=== PATIENT | male | born 1990 | race Caucasian/White ===

== ENCOUNTER 2016-10-01 21:12 | Emergency (ER) | payer BC, OTHER ==
[~2016-10-01] VITALS: Ht 170.2 cm; Wt 59.0 kg
[2016-10-01 21:25] VITALS: Ht 170.2 cm; Wt 59.0 kg
--- NOTE | 2016-10-01 21:38 | ERA ---
ER Documentation Chief Complaint Date/Time DATE: 10/01/16 TIME: 21:38 Chief Complaint STATES "HE HAS NOT SLEPT FOR 3 DAYS AND HE IS HAVING SUICIDAL THOUGHTS" HPI The patient is a 26-year-old male, presenting to the ER because of auditory hallucination, homicidal ideation, suicidal ideation and insomnia for the last 3 days. He plans to overdose on his medication and drugs. He has not been taking his psychotropic medication. He has been doing amphetamine, heroin, marijuana. He denies headache, neck pain, chest pain, abdominal pain, vomiting , dysuria, diarrhea. He was hospitalized at psychiatric hospital about a year and a half ago. He smokes and drinks Past medical history: Schizoaffective disorder Past surgical history: None ROS All systems reviewed and are negative except as per history of present illness. Medications Home Meds Reported Medications Risperidone* (Risperdal*) Unknown Strength Tablet, 0.2 MG PO DAILY Y for PRN, TAB 10/01/16 Allergies Allergies: Coded Allergies: No Known Allergy (Unverified , 10/01/16) Physical Exam Vitals Vital Signs Date Time Temp Pulse Resp B/P Pulse Ox O2 Delivery O2 Flow Rate FiO2 10/01/16 21:25 97.8 106 20 142/95 97 Physical Exam Const: No acute distress. Unkempt Head: Atraumatic. Eyes: Normal Conjunctiva. ENT: Normal External Ears, Nose and Mouth. Neck: Full range of motion. No meningismus. Resp: Clear to auscultation bilaterally. Cardio: Regular rate and rhythm, no murmurs. Abd: Soft, non distended, normal bowel sounds, non tender. Skin: No petechiae or rashes. Back: No midline or flank tenderness. Ext: No cyanosis, or edema. Neur: Awake and alert. No focal deficit Psych: Suicidal Result Diagram: 10/01/16215410/01/162154 Results 24 hrs Laboratory Tests Test 10/01/16 21:49 10/01/16 21:55 Urine Color YELLOW Urine Clarity SLIGHTLY CLOUDY Urine pH 6.0 Urine Specific [place] >=1.030 Urine Ketones TRACE Urine Nitrite NEGATIVE Urine Bilirubin NEGATIVE Urine Urobilinogen 1.0 E.U./dL Urine Leukocyte Esterase NEGATIVE Urine Microscopic RBC NONE SEEN/HPF Urine Microscopic WBC 5-10/HPF Urine Squamous Epithelial Cells RARE Urine Bacteria MODERATE Urine Mucus MANY Urine Hemoglobin NEGATIVE Urine Glucose NEGATIVE% Urine Total Protein TRACE Urine Opiates Screen POSITIVE Urine Barbiturates NEGATIVE Urine Amphetamines Screen POSITIVE Urine Benzodiazepines Screen NEGATIVE Urine Cocaine Screen NEGATIVE Urine Cannabinoids POSITIVE White Blood Count 8.010^3/ul Red Blood Count 4.4810^6/ul Hemoglobin 14.4g/dl Hematocrit 40.5% Mean Corpuscular Volume 90.4fl Mean Corpuscular Hemoglobin 32.1pg Mean Corpuscular Hemoglobin Concent 35.6g/dl Red Cell Distribution Width 10.9% Platelet Count 17617^3/UL Mean Platelet Volume 10.6fl Neutrophils % 68.3% Lymphocytes % 24.6% Monocytes % 6.6% Eosinophils % 0.1% Basophils % 0.3% Nucleated Red Blood Cells % 0.0/100WBC Neutrophils # 5.410^3/ul Lymphocytes # 2.010^3/ul Monocytes # 0.510^3/ul Eosinophils # 0.010^3/ul Basophils # 0.010^3/ul Nucleated Red Blood Cells # 0.010^3/ul Sodium Level 139mmol/L Potassium Level 3.4mmol/L Chloride Level 101mmol/L Carbon Dioxide Level 26mmol/L Anion Gap 15 Blood Urea Nitrogen 9mg/dl Creatinine 0.78mg/dl Glucose Level 93mg/dl Calcium Level 9.3mg/dl Total Bilirubin 0.7mg/dl Direct Bilirubin 0.00mg/dl Indirect Bilirubin 0.7mg/dl Aspartate Amino Transf (AST/SGOT) 24IU/L Alanine Aminotransferase (ALT/SGPT) 28IU/L Alkaline Phosphatase 72IU/L Total Protein 7.4g/dl Albumin 4.5g/dl Globulin 2.90g/dl Albumin/Globulin Ratio 1.55 Salicylates Level < 1.0mg/dl Acetaminophen Level < 10.0ug/ml Ethyl Alcohol Level < 10.0mg/dl Current Medications Medications (Trade) Dose Ordered Sig/Shine Route PRN Reason Start Time Stop Time Status Last Admin Dose Admin Potassium Chloride (Klor-Con 20) 20 meq ONCE STAT PO 10/01/16 23:18 10/01/16 23:24 DC Procedures/MDM MEDICAL MAKING DECISION: The patient is a 26-year-old male, presenting to the ER because of acute suicidal ideation, acute hypokalemia. He was treated with potassium chloride 20 mEq p.o. for low potassium The differential diagnoses considered include but are not limited to drug induced psychosis, psychosis, decompensated psychiatric illness, anxiety attack , panic attack Departure Diagnosis: Primary Impression: Suicidal ideation Additional Impressions: Hypokalemia Substance abuse Condition: Stable Comments He is waiting for telepsychiatrist evaluation The patient's blood pressure was elevated (>120/80) but appears stable without evidence of hypertension emergency or urgency. The patient was counseled about the risks of hypertension and urged to pursue outpatient monitoring and therapy within a week with their primary care physician. PATRICK MARIN MD October 01, 2016 21:38
[2016-10-01 22:03] LABS: ADD UMIC YES; URINE BILIRUBIN (Dip) NEGATIVE (NEGATIVE); URINE BLOOD (Dip) NEGATIVE (NEGATIVE); URINE COLOR YELLOW (YELLOW); URINE GLUCOSE (Dip) NEGATIVE (NEGATIVE); URINE KETONES (Dip) TRACE (NEGATIVE); URINE LEUKOCYTE ESTERASE (Dip) NEGATIVE (NEGATIVE); URINE NITRITE (Dip) NEGATIVE (NEGATIVE); URINE UROBILINOGEN (Dip) 1.0 E.U./dL (0.1-1.0)
[2016-10-01 22:08] LABS: ADD SCAN DIFF NO
[2016-10-01 22:11] LABS: BASOPHILS % 0.3 % (0.0-2.0); EOSINOPHILS % 0.1 % (0.0-7.0); HEMATOCRIT 40.5 % (42.0-52.0); HEMOGLOBIN 14.4 g/dl (14.0-18.0); LYMPHOCYTES % 24.6 % (15.0-51.0); MEAN CORPUSCULAR HEMOGLOBIN 32.1 pg (29.0-33.0); MEAN CORPUSCULAR HGB CONC 35.6 g/dl (32.0-37.0); MEAN CORPUSCULAR VOLUME 90.4 fl (82.0-101.0); MEAN PLATELET VOLUME 10.6 fl (7.4-10.4); MONOCYTE # 0.5 10^3/ul (0.3-0.9); MONOCYTES % 6.6 % (0.0-11.0); NEUTROPHIL # 5.4 10^3/ul (1.6-7.5); NEUTROPHILS % 68.3 % (39.0-77.0); PLATELET COUNT 256 10^3/UL (140-415); RED BLOOD COUNT 4.48 10^6/ul (4.70-6.10); RED CELL DISTRIBUTION WIDTH 10.9 % (11.5-14.5)
[2016-10-01 22:18] LABS: URINE RBCS NONE SEEN /HPF (0); URINE TOTAL PROTEIN (Dip) TRACE (NEGATIVE)
[2016-10-01 22:19] LABS: SQUAMOUS EPITHELIAL CELL,UR RARE
[2016-10-01 22:20] LABS: BACTERIA,URINE MODERATE; MUCUS,URINE MANY
[2016-10-01 22:33] LABS: BENZODIAZEPINES NEGATIVE (NEGATIVE); CANNABINOIDS POSITIVE (NEGATIVE); COCAINE NEGATIVE (NEGATIVE); OPIATES POSITIVE (NEGATIVE)
[2016-10-01 22:33] LABS: ALBUMIN 4.5 g/dl (3.3-4.9); CHLORIDE 101 mmol/L (97-110); SODIUM 139 mmol/L (135-144)
[2016-10-01 22:34] LABS: POTASSIUM 3.4 mmol/L (3.5-5.1)
[2016-10-01 22:35] LABS: CREATININE 0.78 mg/dl (0.61-1.24)
[2016-10-01 22:36] LABS: ALANINE AMINOTRANSFERASE 28 IU/L (13-69); ALBUMIN/GLOBULIN RATIO 1.55; ALKALINE PHOSPHATASE 72 IU/L (42-121); ANION GAP 15 (8-16); ASPARTATE AMINO TRANSFERASE 24 IU/L (15-46); BILIRUBIN,INDIRECT 0.7 mg/dl (0-1.1); BILIRUBIN,TOTAL 0.7 mg/dl (0.2-1.3); BLOOD UREA NITROGEN 9 mg/dl (7-20); CALCIUM 9.3 mg/dl (8.4-10.2); CARBON DIOXIDE 26 mmol/L (21-31); GLUCOSE 93 mg/dl (70-220); TOTAL PROTEIN 7.4 g/dl (6.1-8.1)
[2016-10-01 22:44] LABS: ACETAMINOPHEN < 10.0 ug/ml (10.0-30.0); ETHANOL < 10.0 mg/dl; SALICYLATE < 1.0 mg/dl (5.0-30.0)
[2016-10-01] MEDS ORDERED: RISP0.2553 PO (23:02)
[2016-10-01] MEDS ORDERED: POTASSIUM CHLORIDE (SR) 20 MEQ TAB PO STA (23:18)
[2016-10-01 23:30] LABS: BARBITURATES NEGATIVE (NEGATIVE)
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
[2016-10-02 13:33] VITALS: TEMP 99.1
--- NOTE | 2016-10-02 14:28 | PSY ---
Date/Time of Note Date/Time of Note DATE: 10/02/16 TIME: 14:21 Psychiatric Subjective Eval Subjective Evaluation Patient location: emergency Chief Complaint: "i WAS FORCED TO SAY I AM SUICIDAL TO GET A PLACE TO SPEND THE NIGHT" Reason for consult: si and hi History of present illness patient is a 26 yo male homeless with PPH Of bipolar do , methamphetamine and heroine abuse who came to the ER last night saying he is feeling suicidal. Patient states now he is not sucidal, he was "forced" to say that in order to get a place to sleep: "Just think about it- if I would say that I am a drug addict and I need a safe place to spend the night they would tell me "get the f* *k outta here..so I had to lie to get a bed". Pt denies si or hi, denies ah or vh, denies depression, He says he has a friend who will take him in. "I go to random places for treatment and end up leaving because i don't like how i am treated there..now my friend will take me in". Pt refuses meds or cd rehab referrals Past psychiatric history see prior eval Hospitalization: yes Family History denies Medical history Problems Medical Problems: (1) Hypokalemia Status: Acute (2) Substance abuse Status: Acute (3) Suicidal ideation Status: Acute Allergies: Coded Allergies: No Known Allergy (Unverified , 10/01/16) Social History Marital status: single Level of education: hs DPA/Conservatorship: No Occupation/Jail: unemployed Psychiatric Objective Eval Mental Status Examination: Appearance: Disheveled Eye Contact: Good Psychomotor Activity: Normal Behavior: Cooperative Speech: Clear AFFECT: Appropriate Mood: Appropriate/Full Though Process: Linear Thought Content: Normal Suicidal: No Homicidal: No On 72 hour hold: No Orientation: x4 Cognition: Alert Insight: Impared Judgement: Impared Laboratory Results Laboratory Tests Test 10/01/16 21:49 10/01/16 21:55 Urine Color YELLOW Urine Clarity SLIGHTLY CLOUDY Urine pH 6.0 Urine Specific [place] >=1.030 Urine Ketones TRACE Urine Nitrite NEGATIVE Urine Bilirubin NEGATIVE Urine Urobilinogen 1.0 E.U./dL Urine Leukocyte Esterase NEGATIVE Urine Microscopic RBC NONE SEEN/HPF Urine Microscopic WBC 5-10/HPF Urine Squamous Epithelial Cells RARE Urine Bacteria MODERATE Urine Mucus MANY Urine Hemoglobin NEGATIVE Urine Glucose NEGATIVE% Urine Total Protein TRACE Urine Opiates Screen POSITIVE Urine Barbiturates NEGATIVE Urine Amphetamines Screen POSITIVE Urine Benzodiazepines Screen NEGATIVE Urine Cocaine Screen NEGATIVE Urine Cannabinoids POSITIVE White Blood Count 8.010^3/ul Red Blood Count 4.4810^6/ul Hemoglobin 14.4g/dl Hematocrit 40.5% Mean Corpuscular Volume 90.4fl Mean Corpuscular Hemoglobin 32.1pg Mean Corpuscular Hemoglobin Concent 35.6g/dl Red Cell Distribution Width 10.9% Platelet Count 79547^3/UL Mean Platelet Volume 10.6fl Neutrophils % 68.3% Lymphocytes % 24.6% Monocytes % 6.6% Eosinophils % 0.1% Basophils % 0.3% Nucleated Red Blood Cells % 0.0/100WBC Neutrophils # 5.410^3/ul Lymphocytes # 2.010^3/ul Monocytes # 0.510^3/ul Eosinophils # 0.010^3/ul Basophils # 0.010^3/ul Nucleated Red Blood Cells # 0.010^3/ul Sodium Level 139mmol/L Potassium Level 3.4mmol/L Chloride Level 101mmol/L Carbon Dioxide Level 26mmol/L Anion Gap 15 Blood Urea Nitrogen 9mg/dl Creatinine 0.78mg/dl Glucose Level 93mg/dl Calcium Level 9.3mg/dl Total Bilirubin 0.7mg/dl Direct Bilirubin 0.00mg/dl Indirect Bilirubin 0.7mg/dl Aspartate Amino Transf (AST/SGOT) 24IU/L Alanine Aminotransferase (ALT/SGPT) 28IU/L Alkaline Phosphatase 72IU/L Total Protein 7.4g/dl Albumin 4.5g/dl Globulin 2.90g/dl Albumin/Globulin Ratio 1.55 Salicylates Level < 1.0mg/dl Acetaminophen Level < 10.0ug/ml Ethyl Alcohol Level < 10.0mg/dl Assessment and Plan Assessment/Diagnosis [place] I: polysubstance dependence. malingering [place] II: defered [place] III: as per record [place] IV: severe [place] V: gaf 40 Recommendation/Plan Medication Management pt refuses meds Psychotherapy pt refuses referrals Follow-up/Disposition pt does not present dts, dto,gd - please discharge to [facility]. 0300 Recommendation: Release Hold JENNIFER CARDENAS MD October 02, 2016 14:28
--- NOTE | 2016-10-02 14:53 | EN ---
Date/Time of Note Date/Time of Note DATE: 10/02/16 TIME: 14:52 ER Progress Note Patient is a 26-year-old male with polysubstance abuse who presented to the ER last night expressing suicidal ideation. Patient was evaluated by [facility], who recommended discharging the patient and stated the patient did not appear to be having ongoing suicidal ideation. I evaluated the patient , and agree that he is no longer exhibiting suicidality or psychosis. He states that he believes this is due to his drug use and that he did not feel safe in his environment last night. Tele-psych evaluation was repeated, and tele-psych agrees with the plan to discharge the patient home and agrees that he does not meet hold criteria. JUAN MANUEL PATEL MD October 02, 2016 14:53
[2016-10-02 15:22] VITALS: BP 131/89; PULSE 88; RESP 16
== END 2016-10-02 14:51 | disposition home or self-care (01) ==
LOC: E/R 21:12
DX: E87.6 Hypokalemia (principal); R45.851 Suicidal ideations; F19.10 Other psychoactive substance abuse, uncomplicated
CPT/HCPCS: 36415; 80053; 80306; 80307; 81001; 81003; 85025; 99283